=== PATIENT | male | born 1940 | race Caucasian/White ===

== ENCOUNTER 2016-07-02 05:08 | Day surgery (SDC) | payer MEDICARE, OTHER ==
--- NOTE | ~2016-07-02 | OP ---
Record Of Operation [facility] [address] [place]. [address] NAME: PELON JAMESON : 36 STATUS : [facility]#: [id number] AGE: 76 ADM/REG DATE : 07/02/16 MR#: [id number] REPORT SERV DATE: 07/03/16 DICTATED BY: DEEJAY AGUAYO DATE: 07/03/16 REPORT STATUS : Draft TRANSCRIBED BY: MODL DATE: 07/03/16 DATE OF PROCEDURE: 07/02/2016 PREOPERATIVE DIAGNOSIS: Leaking tracheoesophageal puncture prosthesis. POSTOPERATIVE DIAGNOSIS: Leaking tracheoesophageal puncture prosthesis. OPERATIVE PROCEDURE PERFORMED: Change of tracheoesophageal puncture prosthesis. INDICATIONS AND SIGNIFICANT HISTORY: The patient is 76-year-old male status post total laryngectomy for squamous cell carcinoma. He has undergone voice church with a voice prosthesis, but does have problems with leakage and was felt to benefit from changing his TEP. OPERATIVE PROCEDURE AND FINDINGS: After informed consent was obtained, the patient in the preop holding area was identified and his new 8 mm Provox2 prosthesis was loaded into the roofer helper tool. The old prosthesis was then removed under direct visualization, and using the roofer helper tool, the new prosthesis was inserted. The hemostats were used to drag the outer flange to the outer edge of the stoma to produce a grommet-like seal. The patient was then able to phonate and could swallow saliva without leakage. He tolerated this well and was discharged to home. ESTIMATED BLOOD LOSS: None. IV FLUIDS: None. DLA/MODL Deejay Aguayo M.D. / [id number] CC: Deejay Aguayo M.D. NO PCP
[~2016-07-02 05:08] MED LIST: AMARYL1 MG PO; ASAB PO; COMBIVENT INH; COREG3 PO; COREG6 PO; DIOV160 PO; FUROSEMIDE PO; HYDROCODONE PO; L20 PO; L40 PO; NORCO1 TAB PO; NORV10 PO; PERCOCET1 TA4 PO; PRIN5 PO; SPIRIVA RESPIMAT INH
== END 2016-07-02 16:04 | disposition home or self-care (01) ==
LOC: SDC 05:08
PROVIDERS: Otolaryngology
PROC: 0B21XFZ Change Tracheostomy Device in Trachea, External Approach (ICD-10-PCS; principal; 2016-07-02 06:45)
DX: T85.638A Leakage of other specified internal prosthetic devices, implants and grafts, initial encounter (principal); I11.0 Hypertensive heart disease with heart failure; I50.9 Heart failure, unspecified; J44.9 Chronic obstructive pulmonary disease, unspecified; M19.90 Unspecified osteoarthritis, unspecified site; D64.9 Anemia, unspecified; E11.9 Type 2 diabetes mellitus without complications; J45.909 Unspecified asthma, uncomplicated; Z98.890 Other specified postprocedural states; Z79.01 Long term (current) use of anticoagulants; Z79.899 Other long term (current) drug therapy; Z88.0 Allergy status to penicillin; Z87.891 Personal history of nicotine dependence
CPT/HCPCS: 82962; L8509